=== PATIENT | female | born 1930 | race African-American/Black ===

== ENCOUNTER 2016-03-25 19:26 | Emergency (ER) | payer MEDICARE ==
--- NOTE | 2016-03-25 20:08 | ER Document Report ---
ED Medical Screen (RME) - General Stated Complaint: LEFT FOOT PAIN Time seen by provider: 20:07 Mode of Arrival: Wheelchair Information source: Patient Notes: 85 yo female c/o planter left foot worse today, started with left great toe 1 month ago. Hx arthritis. Worse than a toothache.
[2016-03-25] MEDS ORDERED: HYDROCODONE/ACETAMINOPHEN 5-325 MG TABLET PO ONE (20:09)
[2016-03-25] MEDS ORDERED: ONDANSETRON 4 MG TAB.RAPDIS PO ONE (20:09)
[2016-03-25] MEDS ORDERED: HYDROCODONE/ACETAMINOPHEN 5-325 MG 6 TAB/DSPK PO PRN (22:28)
--- NOTE | 2016-03-25 22:29 | ER Document Report ---
ED General - General Chief Complaint: Foot Pain Stated Complaint: LEFT FOOT PAIN Mode of Arrival: Wheelchair Notes: Patient is an 85-year-old female who presents with dull, constant, aching pain over her left foot for the last 24 hours. She denies history of similar symptoms in the past. She has not tried anything for relief of pain. States touching area or wearing her shoes worsens the pain. Denies any acute injury or trauma to the area. Denies any associated erythema, fluctuance, or edema to the area. She has not seen her primary care physician regarding today's complaints as she is visiting from out of town. TRAVEL OUTSIDE OF THE [place] IN LAST 30 DAYS: No - Related Data Allergies/Adverse Reactions: No Known Allergies Allergy (Verified 03/25/16 22:18) Past Medical History - General Information source: Patient - Social History Smoking Status: Never Smoker Cigarette use (# per day): No Chew tobacco use (# tins/day): No Frequency of alcohol use: None Drug Abuse: None Lives with: Spouse/Significant other Family History: Reviewed & Not Pertinent - Past Medical History Cardiac Medical History: Reports: Hx Hypertension Musculoskeltal Medical History: Reports Hx Arthritis Past Surgical History: Reports: Hx Hysterectomy, Hx Orthopedic Surgery - Bilateral hip replacement Review of Systems - Review of Systems Notes: Constitutional: Negative for fever. Cardiovascular: Negative for chest pain. Respiratory: Negative for shortness of breath. Gastrointestinal: Negative for vomiting Musculoskeletal: Positive for left foot pain. Skin: Negative for rash. Neurological: Negative for weakness or numbness. 10 point ROS negative except as marked above and in HPI. Physical Exam - Vital signs Vitals: Temp Pulse Resp BP Pulse Ox 98.4 F 58 L 14 139/67 H 97 03/25/16 19:32 03/25/16 19:32 03/25/16 19:32 03/25/16 19:32 03/25/16 19:32 Interpretation: Bradycardic Notes: PHYSICAL EXAMINATION: GENERAL: Well-appearing, well-nourished and in no acute distress. HEAD: Atraumatic, normocephalic. EYES: sclera anicteric, conjunctiva are normal. ENT: Moist mucous membranes. NECK: Normal range of motion LUNGS: Normal work of breathing HEART: 2+ DP pulses bilaterally EXTREMITIES: no pitting or edema. No cyanosis. Pain on palpation at the base of the toes on the left foot NEUROLOGICAL: No focal neurological deficits. Moves all extremities spontaneously and on command. PSYCH: Normal mood, normal affect. SKIN: Warm, Dry, normal turgor, no rashes or lesions noted. Course - Re-evaluation Re-evalutation: 03/26/16 04:00 No evidence of a septic joint, gout flare, dislocation, or fracture on exam and imaging. Appears most consistent with local irritation from the type of shoes she has been wearing. Vitals wnl. At this time, I do not see an indication for labs or further imaging. Will discharge with conservative measures, return precautions, and follow-up recommendations. - Vital Signs Vital signs: Temp Pulse Resp BP Pulse Ox 98.4 F 54 L 18 113/50 L 98 03/25/16 22:49 03/25/16 22:49 03/25/16 22:49 03/25/16 22:49 03/25/16 22:49 - Diagnostic Test Radiology reviewed: Image reviewed, Reports reviewed Radiology results interpreted by me: 03/26/16 04:01 Left foot: No acute fracture Discharge - Discharge Clinical Impression: Left foot pain Condition: Good Disposition: HOME, SELF-CARE Additional Instructions: Your x-ray does not show any acute fracture today. You likely have a soft tissue injury. You should continue to take anti-inflammatories such as ibuprofen 400 mg every 6 hours. Continue to apply ice to the area is much your able. Please follow-up with your primary care physician if you do not have improving your symptoms in the next 1-2 weeks. Please return immediately if you develop weakness, numbness, spreading redness from the area, or any other symptoms that are concerning to you.
[2016-03-25 23:08] VITALS: BP 113/50
== END 2016-03-25 22:50 | disposition home or self-care (01) ==
LOC: ER 19:26
DX: M79.672 Pain in left foot (principal); I10 Essential (primary) hypertension; R00.1 Bradycardia, unspecified
CPT/HCPCS: 99283; 73630; A9270 ×3; S0119